=== PATIENT | female | born 1970 | race Caucasian/White ===

== ENCOUNTER 2018-04-04 18:24 | Emergency (ER) | payer MEDICARE, OTHER ==
[~2018-04-04] VITALS: Ht 160 cm; Wt 131.5 kg
[2018-04-04] MEDS ORDERED: CELEXA20 MG PO (18:45)
[2018-04-04] MEDS ORDERED: NITROGLYCERIN0.4 MG SUBLING (18:45)
[2018-04-04] MEDS ORDERED: TOPAMAX 100 MG100 MG PO (18:46)
[2018-04-04] MEDS ORDERED: TOPAMAX100 MG PO (18:46)
[2018-04-04] MEDS ORDERED: LYRICA 75 MG CA75 MG PO (18:47)
[2018-04-04] MEDS ORDERED: LEVAQUIN 250 M250 MG PO (18:47)
[2018-04-04] MEDS ORDERED: SIMVASTATIN40 MG PO (18:47)
[2018-04-04] MEDS ORDERED: MAXALT MLT ODT10 M1 PO (18:48)
[2018-04-04] MEDS ORDERED: AMOXICILLIN 50500 MG PO (18:48)
[2018-04-04] MEDS ORDERED: PHENERGAN 25 MG25 M1 PO ×2 (18:49)
[2018-04-04] MEDS ORDERED: PIOGLITAZONE15 MG ×2 (18:49→18:50)
[2018-04-04] MEDS ORDERED: MOBIC7.5 MG PO (18:49)
[2018-04-04] MEDS ORDERED: BRINTELLIX10 MG PO (18:50)
[2018-04-04] MEDS ORDERED: NORVASC2.5 MG PO (18:50)
[2018-04-04] MEDS ORDERED: HYDROCODONE-AP1 EAC6 PO (18:51)
[2018-04-04] MEDS ORDERED: AMITRIPTYLINE H10 M3 PO (18:51)
[2018-04-04] MEDS ORDERED: ALLERGY10 M1 PO (18:51)
[2018-04-04 19:57] VITALS: BP 132/79
== END 2018-04-04 19:58 | disposition home or self-care (01) ==
LOC: M.ERS 18:24
DX: S93.491A Sprain of other ligament of right ankle, initial encounter (principal); M79.7 Fibromyalgia; G89.29 Other chronic pain; M54.9 Dorsalgia, unspecified; E11.9 Type 2 diabetes mellitus without complications; F32.9 Major depressive disorder, single episode, unspecified; F41.9 Anxiety disorder, unspecified; Z88.6 Allergy status to analgesic agent; Z88.8 Allergy status to other drugs, medicaments and biological substances; Z88.5 Allergy status to narcotic agent; X50.1XXA Overexertion from prolonged static or awkward postures, initial encounter; Y93.89 Activity, other specified; Y92.89 Other specified places as the place of occurrence of the external cause; Y99.8 Other external cause status

== ENCOUNTER 2018-04-07 21:24 | Emergency (ER) | payer MEDICARE, OTHER ==
[~2018-04-07] VITALS: Ht 160 cm; Wt 133.8 kg
[~2018-04-07 21:24] MED LIST: ALLERGY10 M1 PO; AMITRIPTYLINE H10 M3 PO; AMOXICILLIN 50500 MG PO; BRINTELLIX10 MG PO; CELEXA20 MG PO; HYDROCODONE-AP1 EAC6 PO; LEVAQUIN 250 M250 MG PO; LYRICA 75 MG CA75 MG PO; MAXALT MLT ODT10 M1 PO; MOBIC7.5 MG PO; NITROGLYCERIN0.4 MG SUBLING; NORVASC2.5 MG PO; PHENERGAN 25 MG25 M1 PO; PIOGLITAZONE15 MG; SIMVASTATIN40 MG PO; TOPAMAX 100 MG100 MG PO; TOPAMAX100 MG PO
[2018-04-07] MEDS ORDERED: ZANAFLEX4 MG PO (22:55)
[2018-04-07 23:09] VITALS: BP 104/43
== END 2018-04-07 23:10 | disposition home or self-care (01) ==
LOC: M.ERS 21:24
DX: S30.0XXA Contusion of lower back and pelvis, initial encounter (principal); Z46.89 Encounter for fitting and adjustment of other specified devices; G89.29 Other chronic pain; M54.9 Dorsalgia, unspecified; E11.9 Type 2 diabetes mellitus without complications; F41.9 Anxiety disorder, unspecified; F32.9 Major depressive disorder, single episode, unspecified; M79.7 Fibromyalgia; Z88.6 Allergy status to analgesic agent; Z88.8 Allergy status to other drugs, medicaments and biological substances; V89.2XXA Person injured in unspecified motor-vehicle accident, traffic, initial encounter; Y93.89 Activity, other specified; Y92.89 Other specified places as the place of occurrence of the external cause; Y99.8 Other external cause status

== ENCOUNTER 2018-05-29 19:26 | Emergency (ER) | payer MEDICARE, OTHER ==
[~2018-05-29] VITALS: Ht 160 cm; Wt 136.1 kg
[~2018-05-29 19:26] MED LIST changes: +ZANAFLEX4 MG PO
[2018-05-29 20:31] VITALS: BP 133/69
== END 2018-05-29 20:31 | disposition home or self-care (01) ==
LOC: M.ERS 19:26
DX: M79.645 Pain in left finger(s) (principal); M79.7 Fibromyalgia; G89.29 Other chronic pain; M54.9 Dorsalgia, unspecified; E11.9 Type 2 diabetes mellitus without complications; F32.9 Major depressive disorder, single episode, unspecified; F41.9 Anxiety disorder, unspecified; Z88.6 Allergy status to analgesic agent; Z88.8 Allergy status to other drugs, medicaments and biological substances; Z88.5 Allergy status to narcotic agent